=== PATIENT | male | born 1950 | race Native Hawaiian/Other Pacific Islander ===

== ENCOUNTER 2016-09-05 09:16 | Outpatient (CLI) | payer OTHER | END 2016-09-05 10:16 | disposition home or self-care (01) | LOC: RAD 09:16 | DX: M25.512 Pain in left shoulder (principal) ==

== ENCOUNTER 2017-03-13 15:56 | Outpatient (CLI) | payer OTHER | END 2017-03-13 17:00 | disposition home or self-care (01) | LOC: LAB 15:56 | DX: Z86.010 Personal history of colon polyps (principal) | CPT/HCPCS: 82272 ==

== ENCOUNTER 2018-03-20 08:41 | Outpatient (CLI) | payer OTHER | END 2018-03-20 19:14 | disposition home or self-care (01) | LOC: LAB 08:41 | DX: K64.0 First degree hemorrhoids (principal) | CPT/HCPCS: 82272 ==

== ENCOUNTER 2019-01-04 05:19 | Outpatient (CLI) | payer OTHER ==
[2019-01-04] MEDS ORDERED: BAYER ASA325 M1 PO (18:49)
[2019-01-04] MEDS ORDERED: POTASSIUM99 MG PO (18:50)
[2019-01-04] MEDS ORDERED: NEUPRO2 MG/24 HR TD (18:51)
[2019-01-04] MEDS ORDERED: ZN METHIONAT50 MG PO (18:51)
[2019-01-04] MEDS ORDERED: LISI5TAB10 PO (18:52)
[2019-01-04] MEDS ORDERED: ZOLOFT25 MG PO (18:53)
[2019-01-04] MEDS ORDERED: CRESTOR20 MG PO (18:54)
[2019-01-04] MEDS ORDERED: PANTOPRAZOLE 40MG TA PO (18:54)
[2019-01-04] MEDS ORDERED: MELATONIN10 M4 PO (18:55)
[2019-01-04] MEDS ORDERED: LUNESTA3 MG PO (18:55)
== END 2019-01-04 05:27 | disposition short-term general hospital (02) ==
LOC: AMB 05:19
DX: R11.0 Nausea (principal); R50.9 Fever, unspecified
CPT/HCPCS: A0425; A0427

== ENCOUNTER 2019-01-04 05:32 | Inpatient (IN) | payer OTHER ==
[~2019-01-04] VITALS: Ht 177.8 cm; Wt 91.7 kg
[2019-01-04 05:40] VITALS: BP 164/94; TEMP 99.9
[2019-01-04 05:46] LABS: PLATELET COUNT 231 K/uL (142-355)
[2019-01-04 06:33] LABS: POTASSIUM 3.7 mmol/L (3.6-5.2)
[2019-01-04 07:30] VITALS: BP 149/78; TEMP 99.4
[2019-01-04 11:31] VITALS: BP 134/74; TEMP 98.6; Ht 177.8 cm; Wt 91.7 kg
[2019-01-04 12:00] VITALS: BP 130/76; BP 135/80; TEMP 98.3; TEMP 99.3
[2019-01-04 16:00] VITALS: BP 135/80; TEMP 98.3
[2019-01-04] MEDS ORDERED: BAYER ASA325 M1 PO (18:49)
[2019-01-04] MEDS ORDERED: POTASSIUM99 MG PO (18:50)
[2019-01-04] MEDS ORDERED: ZN METHIONAT50 MG PO (18:51)
[2019-01-04] MEDS ORDERED: NEUPRO2 MG/24 HR TD (18:51)
[2019-01-04] MEDS ORDERED: LISI5TAB10 PO (18:52)
[2019-01-04] MEDS ORDERED: ZOLOFT25 MG PO (18:53)
[2019-01-04] MEDS ORDERED: PANTOPRAZOLE 40MG TA PO (18:54)
[2019-01-04] MEDS ORDERED: CRESTOR20 MG PO (18:54)
[2019-01-04] MEDS ORDERED: LUNESTA3 MG PO (18:55)
[2019-01-04] MEDS ORDERED: MELATONIN10 M4 PO (18:55)
[2019-01-04 20:00] VITALS: BP 141/75; TEMP 98.5
[2019-01-05] VITALS: BP 154/79; TEMP 98.9
[2019-01-05 04:00] VITALS: BP 128/71; TEMP 97.9
[2019-01-05 06:21] LABS: PLATELET COUNT 165 K/uL (142-355)
[2019-01-05 06:51] LABS: POTASSIUM 3.3 mmol/L (3.6-5.2); SODIUM 142 mmol/L (136-145)
[2019-01-05 08:00] VITALS: BP 144/73; TEMP 98.3
[2019-01-05 12:00] VITALS: BP 189/97; TEMP 98
[2019-01-05 16:00] VITALS: BP 171/80; TEMP 97.8
[2019-01-06] VITALS (7 sets, daily range): BP systolic 123–171; BP diastolic 66–89; TEMP 97.8–98.3
[2019-01-06 05:25] LABS: PLATELET COUNT 193 K/uL (142-355)
[2019-01-06 05:58] LABS: POTASSIUM 3.9 mmol/L (3.6-5.2)
[2019-01-07 04:00] VITALS: BP 146/79; BP 146/98; TEMP 97.8
[2019-01-07 05:28] LABS: PLATELET COUNT 197 K/uL (142-355)
[2019-01-07 05:36] LABS: POTASSIUM 4.1 mmol/L (3.6-5.2)
[2019-01-07 08:00] VITALS: BP 166/91; TEMP 97.9
== END 2019-01-07 10:15 | disposition home or self-care (01) | DRG 179 ==
LOC: ED 05:32 → MED/SURG 06:51
PROVIDERS: Internal Medicine; ADMIT Family Medicine
DX: J69.0 Pneumonitis due to inhalation of food and vomit (principal); K22.2 Esophageal obstruction; I25.10 Atherosclerotic heart disease of native coronary artery without angina pectoris; E87.6 Hypokalemia; E04.1 Nontoxic single thyroid nodule; N20.0 Calculus of kidney; N28.1 Cyst of kidney, acquired
CPT/HCPCS: 36415; 74022; 80053; 81000; 82150; 82550; 83036; 83605; 83690; 84153; 84439; 84443; 84484; 85027; 87040; 87899; 93005; 94640; 94664; 94760; 96365; 99284; J0456; J0696; J1650; Q9963

== ENCOUNTER 2019-02-02 09:08 | Outpatient (CLI) | payer OTHER ==
[~2019-02-02 09:08] MED LIST: BAYER ASA325 M1 PO; CRESTOR20 MG PO; LISI5TAB10 PO; LUNESTA3 MG PO; MELATONIN10 M4 PO; NEUPRO2 MG/24 HR TD; PANTOPRAZOLE 40MG TA PO; POTASSIUM99 MG PO; ZN METHIONAT50 MG PO; ZOLOFT25 MG PO
== END 2019-02-02 22:45 | disposition home or self-care (01) ==
LOC: CT 09:08
DX: E04.1 Nontoxic single thyroid nodule (principal)
CPT/HCPCS: 36415; 82565; 84520; Q9963

== ENCOUNTER 2019-04-08 08:25 | Outpatient (CLI) | payer OTHER | END 2019-04-08 20:08 | disposition home or self-care (01) | LOC: LAB 08:25 | DX: K64.0 First degree hemorrhoids (principal) | CPT/HCPCS: 82272 ==

== ENCOUNTER 2019-12-31 07:59 | Outpatient (CLI) | payer OTHER | END 2019-12-31 19:06 | disposition home or self-care (01) | LOC: LAB 07:59 | DX: Z20.828 Contact with and (suspected) exposure to other viral communicable diseases (principal) | CPT/HCPCS: 87635; G2023; U0002 ==

== ENCOUNTER 2020-02-19 13:13 | Outpatient (CLI) | payer OTHER ==
[2020-02-19 14:43] LABS: POTASSIUM 3.5 mmol/L (3.6-5.2)
[2020-02-19 15:13] LABS: PLATELET COUNT 157 K/uL (142-355)
== END 2020-02-19 20:02 | disposition home or self-care (01) ==
LOC: LAB 13:13
PROVIDERS: Internal Medicine
DX: R53.83 Other fatigue (principal); I25.10 Atherosclerotic heart disease of native coronary artery without angina pectoris; Z79.899 Other long term (current) drug therapy; Z20.828 Contact with and (suspected) exposure to other viral communicable diseases
CPT/HCPCS: 36415; 80053; 80061; 81000; 82550; 84439; 84443; 85027; 85651; 87635; G2023; U00003

== ENCOUNTER 2020-02-24 09:54 | Outpatient (CLI) | payer OTHER | END 2020-02-24 19:44 | disposition home or self-care (01) | LOC: CT 09:54 | DX: R41.82 Altered mental status, unspecified (principal) ==

== ENCOUNTER 2020-04-22 18:20 | Outpatient (CLI) | payer OTHER | END 2020-04-23 03:43 | disposition home or self-care (01) | LOC: LAB 18:20 | DX: K64.0 First degree hemorrhoids (principal) | CPT/HCPCS: 82272 ==

== ENCOUNTER 2020-04-29 11:45 | Outpatient (CLI) | payer OTHER | END 2020-04-29 19:03 | disposition home or self-care (01) | LOC: RAD 11:45 | DX: S93.504A Unspecified sprain of right lesser toe(s), initial encounter (principal) ==

== ENCOUNTER 2020-05-05 10:18 | Emergency (ER) | payer OTHER ==
[~2020-05-05] VITALS: Ht 177.8 cm; Wt 95.3 kg
[2020-05-05 10:23] VITALS: TEMP 100.3
[2020-05-05 11:19] LABS: PLATELET COUNT 188 K/uL (142-355)
[2020-05-05 11:27] LABS: POTASSIUM 3.5 mmol/L (3.6-5.2); SODIUM 137 mmol/L (136-145)
[2020-05-05 11:38] LABS: PARTIAL THROMBOPLASTIN TIME 24.2 SECONDS (24.5-33.6)
[2020-05-05 12:30] VITALS: BP 170/91
== END 2020-05-05 12:33 | disposition home or self-care (01) ==
LOC: ED 10:18
PROVIDERS: Hospitalist
DX: J06.9 Acute upper respiratory infection, unspecified (principal); J40 Bronchitis, not specified as acute or chronic; R50.9 Fever, unspecified; R06.02 Shortness of breath
CPT/HCPCS: 80053; 81000; 82550; 83605; 83880; 84484; 85027; 85610; 85730; 87040; 87502; 87651; 93005; 96365; 99284; J0696

== ENCOUNTER 2020-05-09 08:27 | Emergency (ER) | payer OTHER ==
[~2020-05-09] VITALS: Ht 177.8 cm; Wt 91.2 kg
[2020-05-09 09:13] LABS: PLATELET COUNT 208 K/uL (142-355)
[2020-05-09 09:21] LABS: POTASSIUM 3.8 mmol/L (3.6-5.2); SODIUM 137 mmol/L (136-145)
[2020-05-09 11:27] VITALS: BP 204/86; TEMP 98.9
== END 2020-05-09 11:27 | disposition home or self-care (01) ==
LOC: ED 08:27
PROVIDERS: Emergency Medicine Emergency Medical Services
DX: J20.9 Acute bronchitis, unspecified (principal)
CPT/HCPCS: 80053; 84484; 85027; 93005; 99283